=== PATIENT | male | born 2000 | race Caucasian/White ===

== ENCOUNTER 2019-11-06 22:42 | Emergency (ER) | payer BC ==
[2019-11-06] MEDS ORDERED: Ondansetron 4 MG Tab.DIS PO ONE (22:58)
--- NOTE | 2019-11-06 23:01 | EDM.PDOC ---
ED HPI GENERAL MEDICAL PROBLEM - General Chief Complaint: General Stated Complaint: VOMITING SOB DIZZY Time Seen by Provider: 11/06/19 22:52 - History of Present Illness INITIAL COMMENTS - FREE TEXT/NARRATIVE: 19-year-old male presents the emergency room with nausea and vomiting. This morning he developed some nausea and is vomited a total of 4 times before and after the vomiting he gets a little lightheaded and does not like the way that makes him feel. He has not tried to really eat or drink anything through the course of the day he denies any abdominal pain. Denies any other symptoms. Patient has no significant past medical history he is not on any routine medications. Patient has not had any diarrhea. The patient does not have a history of significant abdominal problems obstruction prior surgeries, or other issues. - Related Data Allergies Allergy/AdvReac Type Severity Reaction Status Date / Time codeine AdvReac Vomiting Verified 11/06/19 22:51 Home Meds: Home Meds . [No Known Home Meds] 11/06/19 [History] ED ROS GENERAL - Review of Systems Review Of Systems: See Below Constitutional: Reports: No Symptoms HEENT: Reports: No Symptoms Respiratory: Reports: No Symptoms Cardiovascular: Reports: No Symptoms GI/Abdominal: Reports: Nausea, Vomiting. Denies: Abdominal Pain, Constipation, Diarrhea : Reports: No Symptoms Musculoskeletal: Reports: No Symptoms Skin: Reports: No Symptoms ED EXAM, GENERAL - Physical Exam Exam: See Below Exam Limited By: No Limitations General Appearance: Alert, No Apparent Distress Eye Exam: Bilateral Eye: Normal Inspection Ears: Normal External Exam, Normal Canal, Hearing Grossly Normal, Normal TMs Nose: Normal Inspection, Normal Mucosa, No Blood Throat/Mouth: Normal Inspection, Normal Lips, Normal Teeth, Normal Gums, Normal Oropharynx, Normal Voice, No Airway Compromise, Other (Moist mucosa) Neck: Normal Inspection, Supple, Non-Tender, Full Range of Motion. No: Lymphadenopathy (L), Lymphadenopathy (R) Respiratory/Chest: No Respiratory Distress, Lungs Clear, Normal Breath Sounds Cardiovascular: Regular Rate, Rhythm, No Edema, No Murmur GI/Abdominal: Normal Bowel Sounds, Soft, Non-Tender Back Exam: Normal Inspection. No: CVA Tenderness (L), CVA Tenderness (R) Extremities: Normal Inspection, No Pedal Edema Neurological: Alert, Oriented, Normal Cognition Course - Vital Signs Last Recorded V/S: Last Vital Signs Temp 35.8 C L 11/06/19 22:48 Pulse 65 11/06/19 22:48 Resp 16 11/06/19 22:48 BP 136/89 11/06/19 22:48 Pulse Ox 96 11/06/19 22:48 - Orders/Labs/Meds Meds: Medications Discontinued Medications Generic Name Dose Route Start Last Admin Trade Name Natalie PRN Reason Stop Dose Admin Ondansetron HCl 4 mg 11/06/19 22:58 11/06/19 23:04 Zofran Odt PO 11/06/19 22:59 4 mg ONETIME ONE Administration - Re-Assessments/Exams Free Text/Narrative Re-Assessment/Exam: 11/06/19 23:03 With 4 episodes of vomiting I do not think laboratory evaluations could help me at this point his abdominal exam is entirely benign. I did discuss this with the patient and he agrees we will start with some Zofran and see how he does w ith oral fluids. 11/07/19 01:11 Patient is doing much better after having the Zofran he is keeping oral fluids down without difficulty his dizziness is resolved and he is ready to go home. I discussed precautions with the patient recommended he follow a clear liquid diet for the next 24 hours then slowly advance as tolerated he agrees to do so he also agrees to return to the emergency room with any questions problems or worsening symptoms. He will be discharged with Zofran No. 10 from the machine out in the waiting room 1 every 6 hours on an as-needed basis. Departure - Departure Time of Disposition: 01:12 Disposition: Home, Self-Care 01 Clinical Impression: Gastroenteritis - Discharge Information Forms: ED Department Discharge, ED Return to Work/School Form Additional Instructions: Return to the emergency room with any questions problems or worsening symptoms. Clear liquid diet for the next 24 hours then slowly advance as tolerated. From the machine on the waiting room you are given a medication called Zofran, this is what we gave you here in the emergency room, it is for nausea and vomiting use 1 every 6 hours only as needed. Sepsis Event Note (ED) - Evaluation Sepsis Screening Result: No Definite Risk - Focused Exam Vital Signs: Vital Signs Temp Pulse Resp BP Pulse Ox 11/06/19 22:48 35.8 C L 65 16 136/89 96
== END 2019-11-07 01:30 | disposition home or self-care (01) ==
LOC: JD.ED 22:42
DX: K52.9 Noninfective gastroenteritis and colitis, unspecified (principal); Z88.5 Allergy status to narcotic agent
CPT/HCPCS: 99283; A9270

== ENCOUNTER 2020-01-08 10:06 | Emergency (ER) | payer SELFPAY ==
--- NOTE | 2020-01-08 11:46 | EDM.PDOC ---
ED HPI GENERAL MEDICAL PROBLEM - General Chief Complaint: Fever Stated Complaint: SHAKY/FEVERISH/SOB Time Seen by Provider: 01/08/20 11:06 Source of Information: Reports: Patient, RN Notes Reviewed History Limitations: Reports: No Limitations - History of Present Illness INITIAL COMMENTS - FREE TEXT/NARRATIVE: Patient is a 19-year-old male who presents to the ED for couple different complaints. He states that he became ill yesterday, with what he describes as a fever, chills, body aches, slightly sore throat, nonproductive cough, some left lower chest discomfort and some shortness of breath with movement. Patient states that the shortness of breath seems to worsen more when he is walking or being active. He notes that he was around someone that was positive for COVID 3 weeks ago, but he does not think he has been around anyone sick since then. He notes that he did wear a mask around the person, but he is not been tested for the virus. He did not have a thermometer at home, so she he could not take his temperature. At triage, his temperature is 97.0 F, respiratory rate of 22, pulse rate of 62 bpm, blood pressure is 113/17, and his O2 sats are 98 to 99% on room air. He has not taken any medications for his illness. He states he has never felt these symptoms before ever. He was offered a flu vaccine, and states he would not like one, as he "does not like needles". - Related Data Allergies Allergy/AdvReac Type Severity Reaction Status Date / Time codeine AdvReac Vomiting Verified 01/08/20 10:32 Home Meds: Home Meds . [No Known Home Meds] 11/06/19 [History] Past Medical History - Past Health History Medical/Surgical History: Denies Medical/Surgical History - Past Surgical History GI Surgical History: Reports: Hernia Repair/Other Social & Family History - Tobacco Use Smoking Status *Q: Never Smoker Second Hand Smoke Exposure: No - Caffeine Use Caffeine Use: Reports: Tea - Recreational Drug Use Recreational Drug Use: No ED ROS ENT - Review of Systems Review Of Systems: Comprehensive ROS is negative, except as noted in HPI. ED EXAM, ENT - Physical Exam Exam: See Below Exam Limited By: No Limitations General Appearance: Alert, WD/WN, No Apparent Distress Eye Exam: Bilateral Eye: EOMI Mouth/Throat: Normal Inspection Head: Atraumatic, Normocephalic Neck: Normal Inspection Respiratory/Chest: No Respiratory Distress, Lungs Clear, Normal Breath Sounds, No Accessory Muscle Use, Chest Non-Tender Cardiovascular: Normal Peripheral Pulses, Regular Rate, Rhythm, No Murmur GI/Abdominal: Normal Bowel Sounds, Soft, Non-Tender, No Distention, No Mass Extremities: Normal Inspection, Normal Capillary Refill Neurological: Alert, Oriented, Normal Cognition, No Motor/Sensory Deficits Psychiatric: Normal Affect, Normal Mood Skin: Warm, Dry, Intact, Normal Color, No Rash Course - Vital Signs Last Recorded V/S: Last Vital Signs Temp 97.0 F 01/08/20 10: Pulse 62 01/08/20 10:26 Resp 22 H 01/08/20 10:26 BP 113/77 01/08/20 10:26 Pulse Ox 98 01/08/20 10:26 - Orders/Labs/Meds Orders: Active Orders 24 hr Category Date Time Status Chest 1V Frontal [CR] Stat Exams 01/08/20 11:10 Ordered CORONAVIRUS COVID-19 PCR [facility] Stat Lab 01/08/20 11:38 Ordered INFLUENZA A+B AG SCREEN [RM] Stat Lab 01/08/20 11:38 Ordered Isolation [COMM] Routine Oth 01/08/20 11:25 Ordered - Re-Assessments/Exams Free Text/Narrative Re-Assessment/Exam: 01/08/20 11:44 Patient presents to the ED for the evaluation of his illness. We will get a baseline chest x-ray, and obtain a state send out COVID-19 swab along with a influenza swab for today's purposes. 01/08/20 12:10 Chest x-ray is unremarkable, patient swabs are still resulting at this time. Departure - Departure Time of Disposition: 12:10 Disposition: Home, Self-Care 01 Condition: Good Clinical Impression: Fever and chills, Suspected COVID-19 virus infection - Discharge Information *PRESCRIPTION DRUG MONITORING PROGRAM REVIEWED*: No *COPY OF PRESCRIPTION DRUG MONITORING REPORT IN PATIENT ARYA: No Instructions: Contact Precautions, [id number], Fever, Adult, [id number] Referrals: PCP,None [Primary Care Provider] - Forms: ED Department Discharge, ED Return to Work/School Form Additional Instructions: You were seen in the ER today for ongoing respiratory symptoms/illness. Your chest x-ray showed no signs of pneumonia at this time. Your oxygen levels were great at 98% on room air. You were swabbed for influenza at today's visit, unfortunately the lab analyzer is down, we will not have immediate or expedited results for you. You will be called and made notified if this is positive. At this time we did test you for COVID-19. We ask that you self-quarantine and limit your exposure to others until you receive your results from the state. You have been given a work note to reflect this. Swabs are sent from this facility on a daily basis, at 2:30 PM, you should expect up to 3-5 business days for positive or negative results. However you may receive results earlier than this. We are doing our best to call as soon as we get results from the [place] dept. of Health. Please try to increase your oral fluid intake, and eat multiple small meals throughout the day, to keep yourself healthy. You need to keep yourself nourished in order to fight off this disease. You can try a liquid diet like gatorade/powerade as well to get your electrolytes. You may take 500 mg Tylenol every hours 6 hours for pain/fever relief. Do not exceed 4000 mg Tylenol in a 24-hour time span. However, running a fever is your body's natural response to illness, and it allows the body to develop antibodies to disease, we are recommending trying to limit the use of Tylenol as much as possible to allow your body's natural immune response. Sepsis Event Note (ED) - Evaluation Sepsis Screening Result: No Definite Risk - Focused Exam Vital Signs: Vital Signs Temp Pulse Resp BP Pulse Ox 01/08/20 10:26 97.0 F 62 22 H 113/77 98 - My Orders Last 24 Hours: My Active Orders 01/08/20 11:10 Chest 1V Frontal [CR] Stat 01/08/20 11:25 Isolation [COMM] Routine 01/08/20 11:38 CORONAVIRUS COVID-19 PCR [facility] Stat INFLUENZA A+B AG SCREEN [RM] Stat - Assessment/Plan Last 24 Hours: My Active Orders 01/08/20 11:10 Chest 1V Frontal [CR] Stat 01/08/20 11:25 Isolation [COMM] Routine 01/08/20 11:38 CORONAVIRUS COVID-19 PCR [facility] Stat INFLUENZA A+B AG SCREEN [RM] Stat
== END 2020-01-08 12:35 | disposition home or self-care (01) ==
LOC: JD.ED 10:06
DX: R50.9 Fever, unspecified (principal); Z20.828 Contact with and (suspected) exposure to other viral communicable diseases; Z88.5 Allergy status to narcotic agent
CPT/HCPCS: 71045; 87804; 99282; 99285-25; U0002